=== PATIENT | male | born 1980 | race Hispanic/Latino ===

== ENCOUNTER 2017-09-14 09:34 | Emergency (ER) | payer BC, OTHER ==
[~2017-09-14] VITALS: Ht 172.7 cm; Wt 102.0 kg
[2017-09-14 12:41] VITALS: BP 122/85
== END 2017-09-14 12:43 | disposition home or self-care (01) ==
LOC: EME 09:34
DX: J36 Peritonsillar abscess (principal); F17.200 Nicotine dependence, unspecified, uncomplicated
CPT/HCPCS: 87651 90; 99281; 99283